=== PATIENT | male | born 2000 | race Two or more races ===

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

== ENCOUNTER 2020-11-04 05:04 | Emergency (ER) | payer MEDICAID ==
[~2020-11-04] VITALS: Ht 152.4 cm; Wt 77.1 kg
[2020-11-04 05:58] VITALS: BP 149/91
== END 2020-11-04 06:48 | disposition home or self-care (01) ==
LOC: ER 05:04
DX: S00.83XA Contusion of other part of head, initial encounter (principal); W18.39XA Other fall on same level, initial encounter; Y93.89 Activity, other specified; Y92.89 Other specified places as the place of occurrence of the external cause; Y99.8 Other external cause status